=== PATIENT | female | born 1975 | race Caucasian/White ===

== ENCOUNTER 2021-05-31 13:11 | Outpatient (CLI) | payer BC, SELFPAY | END 2021-05-31 13:12 | disposition home or self-care (01) | LOC: CHSAUDIO 13:14 | PROVIDERS: PCP Nurse Practitioner; Visit Provider Otolaryngology | DX: H69.80 Other specified disorders of Eustachian tube, unspecified ear (principal) | CPT/HCPCS: 92557; 92567 ==

== ENCOUNTER 2021-07-25 11:51 | Outpatient (CLI) | payer BC, SELFPAY ==
[2021-07-25 13:56] LABS: SARS-CoV-2 Ag Positive (Negative)
== END 2021-07-25 11:52 | disposition home or self-care (01) ==
LOC: CHSLAB 11:54
PROVIDERS: PCP Nurse Practitioner; Visit Provider Nurse Practitioner
DX: U07.1 COVID-19 (principal); R68.89 Other general symptoms and signs
CPT/HCPCS: 87426; C9803

== ENCOUNTER 2022-08-20 12:06 | Outpatient (CLI) | payer BC, SELFPAY ==
--- NOTE | ~2022-08-20 | XR_ITS ---
EXAMINATION: XR wrist LT min 3V DATE: 08/20/2022 12:14 INDICATION: Left wrist pain TECHNIQUE: Posteroanterior, ulnar deviation, oblique, and lateral views of the left wrist were obtain ed. COMPARISON: 07/13/2009 FINDINGS: Bone alignment is normal. There is no fracture. Lucencies in the capitate are consistent wi th osteoarthritis. IMPRESSION: 1. Mild osteoarthritis. Reviewed, dictated and finalized at location B. D CERTIFIED ORTHODONTIST IMPRESSION: 1. Mild osteoarthritis.
== END 2022-08-20 12:07 | disposition home or self-care (01) ==
LOC: ANHBWCIMG 12:08
PROVIDERS: PCP Nurse Practitioner; Visit Provider Orthopaedic Surgery
DX: M19.032 Primary osteoarthritis, left wrist (principal)
CPT/HCPCS: 73110

== ENCOUNTER 2023-11-07 09:24 | Outpatient (CLI) | payer BC, SELFPAY ==
--- NOTE | ~2023-11-07 | MMUS_ITS ---
EXAMINATION: MM diagnostic jennifer LT w vincenzo, US breast LT limited HISTORY: Follow-up left breast asymmetry TECHNIQUE: Additional 3-D tomosynthesis images of the left breast were performed and synthetic 2-D im ages were generated. CAD analysis was submitted and interpreted. High resolution Limited left breast ultrasound was performed. COMPARISON: Comparison to multiple prior studies sequentially, with oldest reviewed study dated 02/14. BREAST PARENCHYMAL COMPOSITION: Not dense: There are scattered areas of fibroglandular density. FINDINGS: MAMMOGRAPHIC FINDINGS: The left breast is stable without evidence for malignancy. No discrete masses, suspicious calcificati ons or architectural distortion in the left breast to suggest malignancy. ULTRASOUND: Limited left breast ultrasound: Normal heterogeneous echotexture without focal solid or cystic mass. IMPRESSION: 1. No evidence for malignancy in the left breast. 2. Routine yearly screening mammogram and regular clinical breast examination are recommended. BI-RADS Category 1: Negative Reviewed, dictated and finalized at location B. IMPRESSION: 1. No evidence for malignancy in the left breast. 2. Routine yearly screening mammogram and regular clinical breast examination a re recommended. BI-RADS Category 1: Negative
== END 2023-11-07 09:25 | disposition home or self-care (01) ==
LOC: CHSIMG 09:25
PROVIDERS: PCP Nurse Practitioner; Visit Provider Nurse Practitioner
DX: R92.8 Other abnormal and inconclusive findings on diagnostic imaging of breast (principal)
CPT/HCPCS: 76642; 77061; 77065; G0279

== ENCOUNTER 2023-11-16 10:38 | Outpatient (CLI) | payer BC, SELFPAY | END 2023-11-16 10:39 | disposition home or self-care (01) | PROVIDERS: PCP Nurse Practitioner | DX: R19.7 Diarrhea, unspecified (principal) | CPT/HCPCS: 36415; 87506 ==

== ENCOUNTER 2024-11-09 07:57 | Outpatient (CLI) | payer BC, SELFPAY ==
--- NOTE | ~2024-11-09 | MM_ITS ---
EXAMINATION: MM screening jennifer BI w vincenzo HISTORY: Screening TECHNIQUE: Craniocaudal and mediolateral oblique 3-D tomosynthesis images were obtained and synthetic 2-D images were generated. CAD analysis was submitted and interpreted. COMPARISON: 11/07/2023 and dating back to 02/14/2022 BREAST PARENCHYMAL COMPOSITION: The breasts are heterogeneously dense, which may obscure small masses . FINDINGS: Punctate calcifications detected bilaterally, stable and benign in appearance, dermal in or igin. Stable parenchymal pattern without suspicious microcalcifications, architectural distortion, discrete masses or significant asymmetry. IMPRESSION: 1. No mammographic evidence of malignancy. 2. Recommend routine screening mammography in one year. BI-RADS Category 2: Benign finding(s). Reviewed, dictated and finalized at location A.
--- OUTSIDE RECORDS SUMMARY | 2024-11-09 08:19 | XMS_ITS ---
Author Organization Unknown Address [address] [place] [phone] Phone Care Team Providers Care Religious Leader Name Role Phone DANGELO Cope Attending Unavailable ELAINE DOMINGUEZ MEDICAL OR SURGICAL INSTRUMENT MAKER Unavailable ROSINA Cardona Primary Unavailable Immunization Immunization Date Status Additional Notes Code Code System Tdap 04/29/2017 Completed 115 CVX Influenza, split virus, quadrivalent, preservative 06/09/2019 Completed 158 C VX Influenza, split virus, quadrivalent, preservative 04/27/2020 Completed 158 C VX COVID-19, mRNA, LNP-S, PF, 3 0 mcg/0.3 mL dose 06/29/2021 Completed 208 CVX COVID-19 vaccine, vector-nr, rS-Ad26, PF, 0.5 mL 09/24/2020 Completed 212 CVX Social History Type Status Start Date End Date Code Code Syst em Sex Female Vital Signs Vital Sign Value Unit Wiley Ford Value Wiley Ford Unit Date/Time Recent/Initial? Code Code System Body Mass Index 21.95 kg/m2 10/11/2023 09:49 Most Recent 07269 -5 LOINC Body Mass Index 21.95 kg/m2 10/01/2023 09:01 Initial 38343 -5 LOINC Systolic Blood Pressure 107 mm[Hg] 10/11/2023 09:51 Initial 8480- 6 LOINC Diastolic Blood Pressure 62 mm[Hg] 10/11/2023 09:51 Initial 8462- 4 LOINC Body Surface Area 1.54 m2 10/11/2023 09:49 Most Recent 3140- 1 LOINC Body Surface Area 1.54 m2 10/01/2023 09:01 Initial 3140- 1 LOINC Height 157.480 0 cm 62.00 in 10/11/2023 09:49 Most Recent 8302- 2 LOINC Height 157.480 0 cm 62.00 in 10/01/2023 09:01 Initial 8302- 2 LOINC O2 Saturation 99 % 2023 09:51 Initial 86292 -5 LOINC Pulse 77.0 /min 10/11/2023 09:51 Initial 8867- 4 LOINC Respiration 17 /min 10/11/19 09:51 Initial 9279- 1 LOINC Temperature 36.5 Tracy 97.7 F 10/11/19 09:51 Initial 8310- 5 LOINC Weight 54.43 kg 120.00 lbs 10/11/2023 09:49 Most Recent 39501 -7 LOINC Weight 54.43 kg 120.00 lbs 10/01/2023 09:01 Initial 06148 -7 LOINC Medications Medication Start Date End Date Route Frequency Dose Code Code System Medication Instructions Home Meds Linzess 145MCG Oral Capsule 10/11/2023 Unknown ORAL ONCE A DAY 145 MCG 3891642 RxNorm TAKE 145 M CG ORAL ONCE A DAY ZOLOFT 10/11/2023 Unknown BY MOUTH DIRECTED 1 RxNor m TAKE 1 BY MOUTH DIRECTED Hospital Discharge Instructions Should you have any questions prior to discharge, please contact a member of your healthcare team. If you have left the hospital and have any questions, please contact your primary care physician. Reason For Referral No Data Found Procedures Procedure Name Date Status Code Code Syste m Breast implant completed SNOMEDCT Anesthesia for lower intesti nal endoscopic procedures, endoscope introduce 10/11/2023 completed 95958 CPT Hysterectomy completed 443685909 SNOMEDCT Colorectal cancer screening; colonoscopy on individual not meeting criteri 10/11/2023 completed G0121 CPT Allergies and Adverse Reactions Allergy Substance Reaction Severity Start Date Concern Status Co de Code System SULFA (sulfonamide) Active 80643338 SNO MED-CT CIPRO Active 607625 RxNorm PENICILLIN Active Plan of Treatment Colonoscopy 10/11/2023 Encounters Encounter Diagnosis Start Date Code Code Sys tem Encounter for screening for malignant neoplasm of colo n 10/11/2023 SNOMED-CT Personal Care Team Section Performer Name Performer Role Active Date Inactive SILVIA Vazquez PCP - Primary care physician 3-08 2023-10-06 PARKER ALMAGUER PCP - Primary care physician 2023-10-06
--- OUTSIDE RECORDS SUMMARY | 2024-11-09 08:19 | XMS_ITS ---
Author Organization Unknown Address [address] [place] [phone] Phone Care Team Providers Care Business Liaison Manager Name Role Phone KAT GRAVESNA Katie Attending Unavailable FLORENCIO VEGA Primary Unavailable Immunization Immunization Date Status Additional Notes Code Code System Tdap 04/29/2017 Completed 115 CVX Influenza, split virus, quadrivalent, preservative 06/09/2019 Completed 158 C VX Influenza, split virus, quadrivalent, preservative 04/27/2020 Completed 158 C VX COVID-19, mRNA, LNP-S, PF, 3 0 mcg/0.3 mL dose 06/29/2021 Completed 208 CVX COVID-19 vaccine, vector-nr, rS-Ad26, PF, 0.5 mL 09/24/2020 Completed 212 CVX Results TSH / REFLEX FT4 - Collect D ate/Time: 09/27/2023 14:55 [facility] ID: [id number] [place], [place], [id number] LOINC: Test Value Unit Reference Range Code Code System Flag TSH 3.090 uIU/L L=0.470 H=4.680 44053-1 LOINC Social History Type Status Start Date End Date Code Code Syst em Sex Female Medications Medication Start Date End Date Route Frequency Dose Code Code System Medication Instructions Home Meds Linzess 145MCG Oral Capsule 10/11/2023 Unknown ORAL ONCE A DAY 145 MCG 2067591 RxNorm TAKE 145 M CG ORAL ONCE [...] physician. Reason For Referral No Data Found Allergies and Adverse Reactions Allergy Substance Reaction Severity Start Date Concern Status Co de Code System SULFA (sulfonamide) Active 78705111 SNO MED-CT CIPRO Active 693463 RxNorm PENICILLIN Active Plan of Treatment Colonoscopy 10/11/2023 Encounters Encounter Diagnosis Start Date Code Code Sys tem Constipation, unspecified 09/27/2023 SN OMED-CT Personal Care Team Section Performer Name Performer Role Active Date Inactive Da SILVIA Carrasco PCP - Primary care physician 2023-0 3-2023-10-06 PARKER ALMAGUER PCP - Primary care physician 2023-10-06
--- OUTSIDE RECORDS SUMMARY | 2024-11-09 08:19 | XMS_ITS | Clinical Summary ---
Author Organization [address] Address [address] [place] [phone] Care Team Providers Care Mortgage Loan Officer Name Role Phone Morris Gill MD Primary Care Provider + Allergies Active Allergy Reactions Criticality Noted Date Comments Ciprofloxacin Other (See Comments) 06/19/2018 Joint pain Penicillins Hives High 06/19/2018 Sulfa (Sulfonamide Antibiotics) Hives High 06/19/2018 Medications sertraline (ZOLOFT) 50 mg tablet Take 50 mg by mouth daily. 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 Encounters Date Type Department Care Team Description 11/03/2024 External Device Data [facility] ABSTRACTION Provider, Abstract 10/27/2024 Telephone [facility] Clinical Support [address] [place] [phone] La Akins RN Medication Refill 10/07/2024 External Device Data [facility]STRA[facility] Provider, Abstract 09/26/2024 External Device Data [facility]STRA[facility] Provider, Abstract 09/25/2024 External Device Data [facility]STRA[facility] Provider, Abstract 09/23/2024 External Device Data [facility]STRA[facility] Provider, Abstract 09/09/2024 External Device Data [facility]STRA[facility] Provider, Abstract 08/13/2024 External Device Data [facility]STRA[facility] Provider, Abstract from Last 3 Months Social History Tobacco Use Types Packs/Day Years Used Date Smoking Tobacco: Never Smokeless Tobacco: Never Tobacco Cessation:Counseling Given: Not Answered Alcohol Use Standard Drinks/Week Comments Yes 0 (1 standard drink = 0.6 oz pur e alcohol) socially Comments No Sex and Gender Information Value Date Recorded Sex Assigned at Not on file Legal Sex Female 12:00 PM [facility] Gender Identity Not on file Sexual Orientation Not on file Last Filed Vital Signs Vital Sign Reading Time Taken Comments Blood Pressure 112/62 09/12/2023 3:12 PM [facility] Pulse - - Temperature - - Respiratory Rate - - Oxygen Saturation - - Inhaled Oxygen Concentration - - Weight 54.9 kg (121 lb) 09/12/2023 3:12 PM [facility] Height 157.5 cm (5' 2 ) 09/12/2023 3:12 PM [facility] Body Mass Index 22.13 09/12/2023 3:12 PM [facility] Plan of Treatment Upcoming Encounters Date Type Department Care Team (Late st Contact Info) Description 11/18/2024 12:40 PM CDT Office Visit [facility] [address] [facility] [address] [place] [address] Emma Rivera, LIVE [address] [facility] [address] [place] [address] Health Maintenance Due Date Last Done Comments DTAP/TDAP/TD VACCINES (1 - Tdap) 1992 HEPATITIS B VACCINES (1 of 3 - 19+ 3-dose series) 1992 HPV/Cotest (21-29) 1994 CERVICAL CANCER SCREENING 2003 HPV/Cotest (30-65) 2003 PAP SMEAR 2003 COLORECTAL SCREENING 2018 Colorectal Cancer Screening 2018 FIT-DNA Q 3 years 2018 FIT/FOBT Q 1 year 2018 Flex Sig/CT Colonography Q 5 years 2018 ZOSTER VACCINE (1 of 2) 2023 INFLUENZA VACCINE (#1) 2024 BREAST CANCER SCREENING 09/29/2024 09/30/2023, 02/15 Procedures Procedure Name Priority Date/Time Associated Diagnosis Comments MAMMO SCREEN BILAT W OR WO CAD Routine 09/30/2023 8:35 AM CDT from Last 3 Months or Most Recently Relevant to Health Maintenance Results * MAMMO SCREEN BILAT W OR WO CAD (09/30/2023 8:35 AM CDT) Anatomical Region Laterality Modality Breast Bilateral Mammography Emma Rivera CERTIFIED MEDICATION TECHNICIAN MAMMO ORDERABLES Edited Re sult - Final from Last 3 Months or Most Recently Relevant to Health Maintenance Insurance [facility] Care Teams Mortgage Loan Officer Relationship Specialty Start Date End Date Morris Gill MD [address] [place] [address] PCP - General Internal Medicine 06/19/18
== END 2024-11-09 07:58 | disposition home or self-care (01) ==
LOC: CHSIMG 07:58
PROVIDERS: PCP Nurse Practitioner; Visit Provider Nurse Practitioner
DX: Z12.31 Encounter for screening mammogram for malignant neoplasm of breast (principal)
CPT/HCPCS: 77063; 77067